=== PATIENT | female | born 1990 | race Caucasian/White ===

== ENCOUNTER 2016-10-16 04:00 | Inpatient (IN) ==
[2016-10-16] MEDS ORDERED: miSOPROStol 25 MCG TABLET VG PRN (05:23)
[2016-10-16] MEDS ORDERED: Naloxone 0.4 MG/ML INJ IVP PRN (05:23)
[2016-10-16] MEDS ORDERED: Famotidine 20 MG/2 ML VIAL IVP PRN (05:23)
[2016-10-16] MEDS ORDERED: Metoclopramide 10 MG/2 ML VIAL IVP PRN (05:24)
[2016-10-16] MEDS ORDERED: *HR* Nalbuphine 20 MG/ML AMPUL IVP PRN (05:24)
[2016-10-16 06:33] LABS: Basophils % 0.2 %; Eosinophils # 0.1 K/mcL (0.0-0.6); Eosinophils % 0.6 %; Hematocrit 37.1 % (35.3-44.9); Hemoglobin 12.3 g/dL (11.5-15.4); Immature Granulocytes % 0.7 % (0-4); Lymphocytes # 1.3 K/mcL (0.6-4.6); Lymphocytes % 10.6 %; Mean Corpuscular HGB Conc 33.2 g/dL (31.6-35.5); Mean Corpuscular Hemoglobin 28.6 pg (28.0-33.3); Mean Corpuscular Volume 86.3 fL (83.0-100.0); Mean Platelet Volume 10.4 fL (9.4-12.4); Monocytes # 0.9 K/mcL (0.0-1.3); Monocytes % 7.2 %; Neutrophils # 10.1 K/mcL (1.6-8.9); Platelet Count 260 K/mcL (140-400); Segmented Neutrophils % 80.7 %
--- NOTE | 2016-10-16 08:26 | OB/GYN History & Physical ---
Date of Encounter: 10/16/16 Time of Encounter: 08:23 Assessment and Plan (1) Post term over 40 weeks Current visit: Yes Status: Acute labor induction -cytotec placed - will monitor labor progression History of Present Illness HPI: Ms. Santana is a 26 year old female at 40 weeks and 2 days who is presenting for labor induction due to post term dating with no progression. Patient denies any combinations. She is resting comfortably at this time and has no complaints. She is group B strep negative, blood type is O+. She does request an epidural as her labor progresses. Past Med Surg Social Fam HX - Past Medical History Medical history: no medical history Psychiatric history: no psych history - Past Surgical History Surgical History: orthopedic, other - Social History Smoking Status: Never smoker Smokeless Tobacco Status: No Alcohol use: none Drug use: none - Family History Mother Living Status: Still Living Hx Family Cardiac Disorders: No Hx Family Respiratory Disorders: No Hx Family Cancer: No Hx Family GI Disorders: No Hx Family Genitourinary Disorders: No Hx Family Endocrine Disorder: No Hx Family Musculoskeletal Disorders: No Hx Family Neuromuscular Disorders: No Hx Family Neurologic Disorders: No Hx Family HEENT Disorders: No Hx Family Autoimmune Disorders: No Hx Family Reproductive Disorders: No Hx Family Psychosocial Disorders: No Hx Family Medical Disorders: No Obstetrical History - Pregnancies : 1 Para: 0 Medications and Allergies Vit/Iron Fumarate/FA [ Tablet] 1 each PO DAILY 10/16/16 [ History] Allergies No Known Allergies Allergy (Verified 10/16/16 06:06) Review of System OB All systems PM: reviewed and no additional remarkable complaints except as stated - Constitutional Constitutional ROS IM: no chills, no fever(s) - Nose, mouth, and throat Nose, mouth and throat: no dizziness, no headache(s), no vertigo - Cardiovascular Cardiovascular: leg edema (Throughout . Worse when on her feet. Decreased today.), no chest pain, no dyspnea - Respiratory Respiratory: no cough, no dyspnea, no chest congestion - Gastrointestinal Gastrointestinal: no abdominal pain, no diarrhea, no nausea, no vomiting - Genitourinary Genitourinary: amenorrhea, no difficulty urinating, no dysuria, no urinary frequency, no urinary hesitancy, no urinary incontinence, no urinary urgency - Integumentary Integumentary: no rash Exam - Constitutional Constitutional: well developed, well nourished, no acute distress, average body habitus - HEENT HEENT: EOMI, PERRL, Normocephaly, Mucus Membranes Moist - Neck Neck exam: full ROM, normal inspection, trachea midline - Lungs Respiratory exam: CTAB - Cardiovascular Cardiovascular exam: diastolic murmur, RRR - Abdomen Abdomen: Present: bowel sounds normal, gravid, non tender - Extremities Extremities exam: normal capillary refill Deep Tendon Reflex Grade: 3+ Normal But Brisk - Vagina Vagina: Present: normal moisture - Cervix Dilation: 3 Effacement: 70 Station: -2 - Uterus Uterus exam: Present: normal size, normal contour Results Result Diagrams: 10/16/16 06:20 Abnormal lab results WBC 12.6 K/mcL (4.3-11.1) H 10/16/16 06:20 Neutrophils # 10.1 K/mcL (1.6-8.9) H 10/16/16 06:20 All other labs normal. - VTE Reasons for not Prescribing Prophylaxis: Treatment not Indicated - Low risk for VTE - Attending Attestation I examined this patient and my medical decision-making was reviewed with the Resident Physician. I agree with the documented findings, disposition and treatment plan as described. Lexy Barnes DO
--- NOTE | 2016-10-16 10:41 | OB Labor Progress Note ---
Date of Encounter: 10/16/16 Time of Encounter: 10:39 Labor Progress Note - Subjective Subjective: Pt reports moderate discomfort with contractions. - Cervix Cervix: 3-4/80/-1 - Heart Tones Heart Tones: Category I - [place]: 2-3 minutes - Interventions Interventions: AROM for moderate amount clear fluid. IUPC placed. - Plan Plan: Plan for epidural when requested. Anticipate .
[2016-10-16] MEDS: Ringers Solution, Lactated 1,000 ML IVC SCH ×2 (11:00→12:55)
--- NOTE | 2016-10-16 11:23 | Anesthesia Evaluation PreOp ---
Date of Encounter: 10/16/16 Time of Encounter: 11:20 - Past History Planned Operation: KATHARINE Cardiac History: Denies any Significant Hx Pulmonary History: Denies Any Significant HX PLY BANDER History: Denies Any Significant HX Other Medical History: Denies Any Significant HX Anesthesia History: No Prior Anesthetic Complications : No Test: Positive Alcohol Use: none Drug use: none Medications and Allergies Vit/Iron Fumarate/FA [ Tablet] 1 each PO DAILY 10/16/16 [ History] Allergies No Known Allergies Allergy (Verified 10/16/16 06:06) - Meds/Allergy Pre-op Review Medications Reviewed: Yes Allergies Reviewed: Yes Beta Blockers on Current Med List: No Anesthesia Results - Labs 10/16/16 06:20 Anesthesia Exam Height: 72 Weight: 112 Pain Scale: 0 - HEENT Pupil (Motor): Pupils equal Mallampati: II Teeth: Normal Oral Opening: Greater than 3 - PLY BANDER LOC: Oriented PLY BANDER Motor: Normal RUE, Normal LUE, Normal RLE, Normal LLE, Normal Face PLY BANDER Sensory: Normal: RUE, LUE, RLE, LLE, Face - Cardiac Rhythm: Regular Murmur: None JVD: No Carotid Bruit: No - Pulmonary Breath Sounds: bilateral Clear Respiratory Effort: Symmetrical
[2016-10-16] MEDS ORDERED: Epidural Premix (fent/bupiv) 110 ML EP SCH (11:30)
[2016-10-16] MEDS ORDERED: Epidural Premix (fent/bupiv) 110 ML EP ONE (12:20)
[2016-10-16] MEDS ORDERED: *HR* Ropivacaine/PF 0.2% 10 ML AMPUL ONE ×2 (13:12→15:41)
--- NOTE | 2016-10-16 13:14 | Anesthesia Procedures ---
Date of Encounter: 10/16/16 Time of Encounter: 11:45 Procedures: Anesthesia - Epidural/Spinal Patient ID/Chart reviewed: Yes Patient examined: Yes OB Eval: Gestational age: 40.2 OB Eval: : 1 OB Eval: Hx Para: 0 OB Eval: Dilated at (cm): 5 OB Eval: Contractions: Non-stressed pattern Consent Obtained: Yes Supplemental Oxygen: None/Room Air Site Prep: Aseptic Technique, Sterile prep and drape, Povidone-Iodine 1% Patient position: upright Local Anesthetic: Lidocaine 1% Amount of Local Anesthetic used: 3 Touhy Needle Gauge: 18 Touhy Needle Depth (cm): 7 Catheter Depth at Skin (cm): 9 Test Dose Result: Negative Loading Dose Administered: Thru Catheter Infusion Rate (mls/hr): [address]: Tegaderm, Tape Interspace Used: L4-L5 Loss of Resistance (REBECCA): Yes Blood: No CSF: No Paresthesia: No Procedure: no complications VSS see nursing record
[2016-10-16] MEDS ORDERED: Lidocaine -MPF 1% 2 ML VIAL ONE (14:59)
--- NOTE | 2016-10-16 15:28 | OB Labor Progress Note ---
Date of Encounter: 10/16/16 Time of Encounter: 15:27 Labor Progress Note - Subjective Subjective: Pt reports some back pain with contractions. - Cervix Cervix: 6cm per RN - Heart Tones Heart Tones: Category I - House House: 2-3 minutes - Plan Plan: Continue to monitor. Anticipate .
[2016-10-16] MEDS ORDERED: Oxytocin 20 units/ LR 1000 mL 20 UNIT/1,000 ML BAG IVC ONE ×2 (15:43→19:59)
[2016-10-16] MEDS ORDERED: Lidocaine 1% 20 ML MDV ONE (15:45)
[2016-10-16] MEDS ORDERED: Ondansetron 4 MG/2 ML VIAL IV ONE (16:05)
[2016-10-16] MEDS ORDERED: Ondansetron 4 MG/2 ML VIAL ONE (16:05)
[2016-10-16] MEDS ORDERED: *HR* FentaNYL (PF) 100 MCG/2 ML VIAL ONE (17:14)
--- NOTE | 2016-10-16 19:22 | OB/GYN Procedure Note ---
Delivery - Delivery Date: 10/16/16 Provider: Lexy Barnes Intrapartum events: none Delivery induction: AROM, misoprostol Delivery monitor: external FHT, external uterine, internal uterine Anesthesia: epidural Estimated Blood Loss: 300 - (s) A Delivery Date: 10/16/16 Delivery Time: 18:38 Presentation: vertex Position: OA Route of delivery: Gender: Female Viability: Viable Pounds: 8 Ounces: 9 at 1 minute: 8 at 5 mins: 9 Shoulder Dystocia: encountered Shoulder Dystocia Maneuvers: Ronnie maneuver, suprapubic pressure Shoulder dystocia time elapsed: 45 seconds Specimens collected: cord blood Placenta: spontaneous Cord: nuchal cord, 3 umbilical vessels, nuchal reduced - Repair Episiotomy: none Laceration Description: Perineal - 1st Degree - Complications Delivery complications: none Delivery comments: Called to room with patient complete and +2 station. Under maternal effort she delivered a viable female weighing 8 lbs. 9 oz. and Apgars 891 and 5 minutes respectfully of her first-degree perineal laceration. Following delivery of the head there is a loose nuchal cord that was reduced. Shoulder dystocia was then encountered lasting a total 45 seconds. The shoulder was reduced using Ronnie and suprapubic pressure. No fundal pressure was given. The was placed on mom's abdomen. Cord was allowed to cease pulsations and then was clamped and cut. Cord blood was collected. Placenta delivered spontaneously, complete, and intact with a three-vessel cord. The first-degree perineal laceration was repaired using 3-0 Vicryl in standard fashion. Mother and are recovering in the LDR in stable condition.. - Disposition Mom disposition: stable in LDR disposition: stable in LDR
[2016-10-16] MEDS ORDERED: Oxytocin 20 units/ LR 1000 mL 20 UNIT/1,000 ML BAG IV SCH (19:59)
[2016-10-16] MEDS ORDERED: Measles/Mumps/Rubella Vacc 0.5 ML VIAL SQ PRN (19:59)
[2016-10-16] MEDS ORDERED: Acetaminophen 325 MG TABLET PO PRN (19:59)
[2016-10-17] MEDS: Ibuprofen 600 MG TABLET PO PRN ×3 (05:54→19:37)
[2016-10-17] MEDS ORDERED: Prenatal Vit/FA 1 EACH TABLET PO SCH (09:00)
--- NOTE | 2016-10-17 11:11 | Discharge Summary ---
Date of Encounter: 10/17/16 Time of Encounter: 11:08 - Discharge Diagnosis (1) (normal spontaneous vaginal delivery) Priority: Primary Status: Acute Comments: Pt meeting milestones. - Discharge Medications Prescriptions: Ibuprofen [Motrin] 600 mg PO Q6HR PRN #60 tablet PRN Reason: Cramping Docusate [Colace] 100 mg PO BID #60 capsule Home Medications: Vit/Iron Fumarate/FA [ Tablet] 1 each PO DAILY 10/16/16 [ History] Breast Pump [BREAST PUMP] 1 each .ROUTE AD #1 each 10/17/16 [Rx] Docusate [Colace] 100 mg PO BID #60 capsule 10/17/16 [Rx] Ibuprofen [Motrin] 600 mg PO Q6HR PRN #60 tablet 10/17/16 [Rx] Allergies/Adverse Reactions: Allergies No Known Allergies Allergy (Verified 10/16/16 06:06) Data Procedures and tests throughout hospitalization: Laboratory Tests 10/16/16 06:20 WBC 12.6 H RBC 4.30 Hgb 12.3 Hct 37.1 MCV 86.3 MCH 28.6 MCHC 33.2 RDW 14.0 Plt Count 260 MPV 10.4 Immature Gran % 0.7 Seg Neutrophils % 80.7 Lymphocytes % 10.6 Monocytes % 7.2 Eosinophils % 0.6 Basophils % 0.2 Neutrophils # 10.1 H Lymphocytes # 1.3 Monocytes # 0.9 Eosinophils # 0.1 Basophils # 0.0 Date of admission: 10/16/16 04:22 Primary care physician: Andres Anna, Consults: 10/16/16 19:59 Consult to Optical Coating Technician [CONS] Routine Comment: Vaginal delivery, consult needed Discharging clinician: Peggy Abdalla Anticipated date of discharge: 10/17/16 - Patient Status Disposition: Home, Self-Care Condition: Good Functional capacity at discharge: independent ambulation Overall status at discharge: patient is progressing back to baseline - Discharge Instructions Follow Up With: Andres Anna MD [Primary Care Provider] - Lexy Barnes DO [Partnered Physician] - - Diet and Activity Activity: increase activity as tolerated Diet: advance to your usual diet Hospital Course Reason for admission: induction of labor Delivery: Episiotomy: none Laceration: 1st degree Other procedures: none complications: none Discharge diagnosis: IUP at term delivered baby: female Hospital course: - Delivery Date: 10/16/16 Provider: Lexy Barnes Intrapartum events: none Delivery induction: AROM, misoprostol Delivery monitor: external FHT, external uterine, internal uterine Anesthesia: epidural Estimated Blood Loss: 300 - (s) Infant A Infant Delivery Date: 10/16/16 Infant Delivery Time: 18:38 Presentation: vertex Position: OA Route of delivery: Gender: Female Viability: Viable Pounds: 8 Ounces: 9 at 1 minute: 8 at 5 mins: 9 Shoulder Dystocia: encountered Shoulder Dystocia Maneuvers: Ronnie maneuver, suprapubic pressure Shoulder dystocia time elapsed: 45 seconds Specimens collected: cord blood Placenta: spontaneous Cord: nuchal cord, 3 umbilical vessels, nuchal reduced - Repair Episiotomy: none Laceration Description: Perineal - 1st Degree - Complications Delivery complications: none - Disposition Mom disposition: home PPD 1 disposition: home with mother, Time Attestation: Total time spent providing and/or coordinating discharge services: Time Spent: Less than 30 minutes Exam - Constitutional Vitals: Temp Pulse Resp BP Pulse Ox 98.1 F 67 16 114/74 98 10/17/16 08:25 10/17/16 08:25 10/17/16 08:39 10/17/16 08:25 10/17/16 08:25 General appearance IM: A&O X 3, pleasant, no acute distress - Respiratory Respiratory exam: Present: CTAB - Cardiovascular Cardiovascular exam IM: Present: RRR, +S1, +S2 - GI/Abdominal GI/Abdominal exam IM: soft - Rectal Rectal exam: deferred - Uterine Tone: Firm Uterus Position: 1 Finger Below Umbilicus - Extremities Exam Extremities exam IM: Present: normal inspection, pedal edema (mild bilaterally) - Neurological Exam Neurological exam: normal gait, oriented X3 - Psychiatric Additional comments: reports good mood
[2016-10-17 20:04] VITALS: BP 101/68
== END 2016-10-17 22:05 | disposition home or self-care (01) | DRG 560 ==
LOC: 1NENULAB 04:22 → 1NENUOBS 22:13
PROVIDERS: ADMIT Obstetrics & Gynecology; ATTEND Obstetrics & Gynecology